=== PATIENT | male | born 1995 | race Caucasian/White ===

== ENCOUNTER 2021-02-13 09:56 | Emergency (ER) | payer OTHER ==
[~2021-02-13] VITALS: Ht 180.3 cm; Wt 77.1 kg
[~2021-02-13 09:56] MED LIST: IBUPROFEN 600600 M1 PO; INTUNIV3 MG PO; KEFLEX500 MG PO; NORCO 5-325 TA1 EACH PO
[2021-02-13 10:03] VITALS: BP 130/71
[2021-02-13] MEDS ORDERED: AUGMENTIN 875-1 EACH PO (10:29)
[2021-02-13] MEDS ORDERED: NORCO7.5 PO (10:29)
== END 2021-02-13 10:40 | disposition home or self-care (01) ==
LOC: ER 09:56
DX: S41.012D Laceration without foreign body of left shoulder, subsequent encounter (principal); Z79.891 Long term (current) use of opiate analgesic; Z79.899 Other long term (current) drug therapy; X58.XXXD Exposure to other specified factors, subsequent encounter

== ENCOUNTER 2021-03-14 10:58 | Emergency (ER) | payer OTHER ==
[~2021-03-14] VITALS: Ht 180.3 cm; Wt 77.1 kg
[~2021-03-14 10:58] MED LIST changes: +AUGMENTIN 875-1 EACH PO; +NORCO7.5 PO
[2021-03-14 12:07] LABS: CALCIUM 8.8 mg/dL (8.5-10.1); CREATININE 0.8 mg/dL (0.7-1.3); POTASSIUM 3.6 mmol/L (3.5-5.1)
[2021-03-14] MEDS ORDERED: IBU600 MG PO (13:30)
[2021-03-14 13:32] VITALS: BP 120/53
== END 2021-03-14 13:32 | disposition home or self-care (01) ==
LOC: ER 10:58
PROVIDERS: Physician Assistant
DX: L91.0 Hypertrophic scar (principal); M25.512 Pain in left shoulder; Z79.899 Other long term (current) drug therapy; Z79.891 Long term (current) use of opiate analgesic